=== PATIENT | female | born 1955 | race Caucasian/White ===

== ENCOUNTER 2017-02-06 12:39 | Day surgery (SDC) | payer OTHER ==
[~2017-02-06] VITALS: Ht 152.4 cm; Wt 68.7 kg
[2017-02-06] VITALS (18 sets, daily range): BP systolic 133–182; BP diastolic 64–90; PULSE 74–116; RESP 13–21; Ht 152.4 cm; Wt 68.7 kg
[~2017-02-06 12:39] MED LIST: ATOR20TA38 PO; CEFAZOLIN 2 GM/50 ML (PMX) 50 ML IVPB ONE; DESFLURANE 15 MIN ONE; DIPH25CA6 PO; ERGO400T4 PO; HYD25 PO; LOSA50TA2 PO; METF500T3 PO; MULTI PO; SEVOFLURANE 15 MIN ONE; SOD CHLORIDE 0.9% 1,000 ML IV ONE; SUCCINYLCHOLINE CHLORIDE 100 MG/5 ML SYG IV ONE; VITA400C15 PO
[2017-02-06] MEDS ORDERED: ONDANSETRON 4 MG INJ ONE (14:12)
[2017-02-06] MEDS ORDERED: CEFAZOLIN 1 GM INJ ONE (14:12)
[2017-02-06] MEDS ORDERED: ROCURONIUM 50 MG INJ ONE (14:12)
[2017-02-06] MEDS ORDERED: FENTAnyl 50 MCG/ML VIAL ONE ×3 (14:12→15:47)
[2017-02-06] MEDS ORDERED: ACETAMINOPHEN 1000MG/100ML IV 100 ML ONE (14:12)
[2017-02-06] MEDS ORDERED: PROPOFOL 20 ML ONE (14:12)
[2017-02-06] MEDS ORDERED: MIDAZOLAM 1 MG/ML 2 ML INJ ONE (14:12)
[2017-02-06] MEDS ORDERED: LIDOCAINE 1% (MDV) 20 ML INJ ONE (14:13)
[2017-02-06] MEDS ORDERED: DEXAMETHASONE 4 MG/ML 1 ML INJ ONE (14:13)
[2017-02-06] MEDS ORDERED: OCULAR LUBRICANT 3.5 GM OPH OINT ONE (14:27)
[2017-02-06] MEDS ORDERED: POLYMYXIN/BACITRACIN 1L IRRIG ONE (14:37)
[2017-02-06] MEDS ORDERED: BUPIVACAINE 0.25% (MPF) 10 ML 10 ML VIAL INJ ONE (15:08)
[2017-02-06] MEDS ORDERED: SUGAMMADEX SODIUM 200 MG/2 ML VIAL IV ONE (15:26)
[2017-02-06] MEDS ORDERED: HYDROCODONE/APAP (5/325) TAB PO ONE (15:30)
--- NOTE | 2017-02-06 15:36 | OPR ---
Date/Time of Note Date/Time of Note DATE: 02/06/17 TIME: 15:29 Operative Report Procedure Date: Feb 06, 2017 Preoperative Diagnosis incarcerated incisional and mid epigastric ventral hernia Postoperative Diagnosis same Operation Performed 1. laparoscopic incarcerated incisional hernia repair cpt code 44461 2. laparoscopic midepigastric ventral hernia repair cpt code 25161 3. mesh implantation cpt code 35751 4. laparoscopic lysis of adhesions 1 hour 5. therapeutic injection of subcutaneous marcaine cpt code 04464 Grafts/Implants ventralight ST 15x20 cm mesh Indications This is a 61-year-old female with symptomatic incisional and incarcerated hernias 2. Patient requires surgical repair. Risks alternatives benefits and percent were discussed the patient. Patient expresses understanding consents to the operation. Procedure Description Patient taken to the OR and prepped and draped in usual sterile fashion. Surgical timeout was performed. IV antibiotics were given. Left upper quadrant 5 mm transverse incision is made with a 15 blade. Using a 5 mm optical trocar optical entry is performed. Left flank 12 mm optical trocar and left lower quadrant 5 mm optical trochars were placed under direct visualization. Upon initial inspection there is 2 large hernia defects one in the inferior periumbilical area and the mid epigastric ventral hernia with incarcerated hernia contents. Careful dissection was made and lap scopic lysis of adhesions was performed for an extended period of time to lyse the bowel incarcerated hernia contents away from the hernia defects. The 2 hernia defects are identified. These were then both closed individually by making incision in the midepigastric region and a small incision in the inferior periumbilical region with a 15 blade. These were used to place the Endo Close through and place multiple interrupted #1 Prolene sutures in interrupted fashion using laparoscopic techniques both in the midepigastric and ventral hernia sites. After primary closure of the 2 hernia defects these were then repaired with underlay mesh with 15 x [address] There are approximately 45 cm coverage in all directions. This is secured in place with secure strap. There is good hemostasis. Ports removed under direct visualization. Skin was closed using skin lisa. Therapeutic subcu times Marcaine was injected into all incision sites. Dry dressings were applied. Aditya MOTA Feb 06, 2017 15:36
[2017-02-06] MEDS ORDERED: GLUCOSE GEL 15 GRAM TUBE PO PRN ×2 (16:00)
[2017-02-06] MEDS ORDERED: FENTAnyl 50 MCG/ML VIAL IV PRN ×3 (16:00)
[2017-02-06] MEDS ORDERED: OXYCODONE/ACETAMINOPHEN (5/325) TAB PO PRN ×2 (16:00)
[2017-02-06] MEDS ORDERED: INSULIN ASPART [NOVOLOG] 3 ML PEN SC ONE (16:00)
[2017-02-06] MEDS ORDERED: ONDANSETRON 4 MG INJ IV PRN (16:00)
[2017-02-06] MEDS ORDERED: LABETALOL HCL 20MG INJ IV PRN (16:00)
[2017-02-06] MEDS ORDERED: GLUCAGON 1 MG INJ IM PRN (16:00)
[2017-02-06] MEDS ORDERED: GLUCOSE GEL 15 GRAM TUBE BUCCAL PRN (16:00)
[2017-02-06] MEDS ORDERED: KETOROLAC 30 MG INJ IV PRN (16:00)
[2017-02-06] MEDS ORDERED: DEXTROSE 50% 50 ML SYRINGE IV PRN ×2 (16:00)
[2017-02-06] MEDS ORDERED: METOCLOPRAMIDE 10 MG INJ IV PRN (16:00)
[2017-02-06] MEDS ORDERED: HYPOGLYCEMIA PROTOCOL when Glucose is <70 mg/dL or symptomatic <90 mg/dL. XX ONE (16:00)
[2017-02-06] MEDS ORDERED: HYDROmorphONE (0.2 MG/ML) 10ML SYG IV PRN ×3 (16:30)
== END 2017-02-06 18:13 | disposition home or self-care (01) ==
LOC: SDS 12:39
PROVIDERS: ATTEND Surgery
DX: K43.0 Incisional hernia with obstruction, without gangrene (principal); K43.6 Other and unspecified ventral hernia with obstruction, without gangrene; I10 Essential (primary) hypertension; E11.9 Type 2 diabetes mellitus without complications
CPT/HCPCS: 49653; 49655; 82962; C1781; J0131; J0690; J1100; J1170; J1885; J2250; J2405; J3010; Z7512; Z7610; J7999